=== PATIENT | male | born 1995 | race Caucasian/White ===

== ENCOUNTER 2024-10-19 11:06 | Emergency (ER) | payer OTHER ==
[~2024-10-19] VITALS: Ht 162.6 cm; Wt 93.0 kg
[~2024-10-19 11:06] MED LIST: ALBU.083IS IH; ALBU90OI61 INH; MONT5TCH PO
[2024-10-19 11:12] VITALS: BP 136/79
[2024-10-19] MEDS ORDERED: Ketorolac Tromethamine 15mg Vial IM ONE (14:30)
== END 2024-10-19 14:38 | disposition home or self-care (01) ==
LOC: ER 11:06
DX: M62.831 Muscle spasm of calf (principal); J45.909 Unspecified asthma, uncomplicated; Z79.899 Other long term (current) drug therapy
CPT/HCPCS: 96372; 99283-25; J1885